=== PATIENT | female | born 1975 | race Caucasian/White ===

== ENCOUNTER 2018-08-30 12:09 | Emergency (ER) | payer OTHER ==
[2018-08-30 12:22] VITALS: RESP 18
[2018-08-30] MEDS ORDERED: Oxymetazoline 0.05% Nasal Spray (30 ml) NS STA (13:24)
--- NOTE | 2018-08-30 13:25 | C.PDOC ---
History Of Present Illness 43 y/o female pt with hx of anemia presents to the ER c/o nose bleed in the right nare for x3 weeks. Pt notes she is on blood thinners. Pt denies trauma, URI sx, headache, visual changes, nausea, vomiting, fever and chills. Time Seen by Provider: 08/30/18 12:16 Chief Complaint (Nursing): ENT Problem History Per: Patient History/Exam Limitations: no limitations Onset/Duration Of Symptoms: Days (x3 weeks) Current Symptoms Are (Timing): Still Present Location Of Bleeding: Right Nare Symptoms Have Been: Continuous Past Medical History Reviewed: Historical Data, Nursing Documentation, Vital Signs Vital Signs: Last Vital Signs Temp 98.7 F 08/30/18 12:15 Pulse 98 H 08/30/18 12:15 Resp 18 08/30/18 12:15 BP 152/103 H 08/30/18 12:15 Pulse Ox 99 08/30/18 12:15 - Medical History PMH: Anemia, Hypothyroidism Family History: States: Unknown Family Hx - Social History Hx Alcohol Use: No Hx Substance Use: No Review Of Systems Except As Marked, All Systems Reviewed And Found Negative. Constitutional: Negative for: Fever, Chills, Other (trauma ) Eyes: Negative for: Vision Change ENT: Positive for: Other (nose bleed in right nare ) Respiratory: Negative for: Cough, Shortness of Breath, Wheezing Gastrointestinal: Negative for: Vomiting Neurological: Negative for: Headache Physical Exam - Physical Exam Appears: Well, Non-toxic, No Acute Distress Skin: Warm, Dry Head: Atraumatic, Normacephalic Eye(s): bilateral: PERRL, EOMI, Other (conjunctiva clear ) Ear(s): Bilateral: Normal Nose: No Discharge, Epistaxis (oozing on nasal floor of right nare ), No Deformity, No Tenderness Oral Mucosa: Moist Tongue: Normal Appearing Lips: Normal Appearing Throat: Normal, No Erythema, No Exudate, No Drooling ED Course And Treatment O2 Sat by Pulse Oximetry: 99 (RA) Pulse Ox Interpretation: Normal Medical Decision Making Medical Decision Making: plans: -- Pt was told to blow clots out and was told to hold nose pressure for 15 minutes. -- 7.5 rapid rhino was placed in right nare Reassess: no further bleeding. Pt is d/c with prescription for keflex. Pt instructed to f/u in 2 days to remove rapid rhino. Disposition Counseled Patient/Family Regarding: Diagnosis, Need For Followup - Disposition Disposition: HOME/ ROUTINE Disposition Time: 13:50 Condition: IMPROVED Additional Instructions: ALFRED SPEARS, thank you for letting us take care of you today. Your provider was Nicole Crenshaw MD and you were treated for FREQUENT NOSEBLEEDS. The emergency medical care you received today was directed at your acute symptoms. If you were prescribed any medication, please fill it and take as directed. It may take several days for your symptoms to resolve. Return to the Emergency Department if your symptoms worsen, do not improve, or if you have any other problems. Please follow up with your doctor in 2 days or return to the Emergency Department for reevaluation/removal of nasal packing. Bring any paperwork you were given at discharge with you along with any medications you are taking to your follow up visit. Our treatment cannot replace ongoing medical care by a primary care provider outside of the emergency department. Thank you for allowing the [facility] team to be part of your care today. Prescriptions: Cephalexin [cephalexin] 500 mg PO QID #28 cap Instructions: Nosebleeds (DC) Forms: [employer] (Montenegrin) - POA Present On Arrival: None - Clinical Impression Clinical Impression: Epistaxis - Scribe Statement The provider has reviewed the documentation as recorded by the Scribdivya Hudson Do Provider Attestation: All medical record entries made by the Scribe were at my direction and personally dictated by me. I have reviewed the chart and agree that the record accurately reflects my personal performance of the history, physical exam, medical decision making, and the department course for this patient. I have also personally directed, reviewed, and agree with the discharge instructions and disposition.
[2018-08-30] MEDS ORDERED: Oxymetazoline 0.05% Nasal Spray (30 ml) NS ONE (13:46)
[2018-08-30 13:48] VITALS: BP 148/86; PULSE 84; TEMP 98.6
[2018-08-30 14:26] VITALS: O2SAT 99
== END 2018-08-30 13:50 | disposition home or self-care (01) ==
LOC: C.ER 12:09
DX: R04.0 Epistaxis (principal); Z79.01 Long term (current) use of anticoagulants

== ENCOUNTER 2018-09-01 06:06 | Emergency (ER) | payer SELFPAY ==
[2018-09-01 06:24] VITALS: RESP 20
--- NOTE | 2018-09-01 06:36 | C.PDOC ---
History Of Present Illness patient returns today for nasal packing removal. she was seen in this ED 2 days ago and had a 7.5 cm rhino rocket placed. she denies any bleeding around the packing or down her throat. Time Seen by Provider: 09/01/18 06:33 Chief Complaint (Nursing): ENT Problem Past Medical History Vital Signs: Last Vital Signs Temp 98.5 F 09/01/18 06:13 Pulse 105 H 09/01/18 06:13 Resp 20 09/01/18 06:13 BP 142/93 H 09/01/18 06:13 Pulse Ox 96 09/01/18 06:13 - Medical History PMH: Anemia, Hypothyroidism Family History: States: Unknown Family Hx - Social History Hx Alcohol Use: No Hx Substance Use: No Review Of Systems Constitutional: Positive for: Fever. Negative for: Chills ENT: Positive for: Nose Pain (due to packing) Respiratory: Negative for: Hemoptysis Physical Exam - Physical Exam Appears: Well, No Acute Distress Skin: Normal Color Nose: Other (nasal packing in place, packing removed, blood noted in nare, no active bleeding ) Oral Mucosa: Moist Throat: Normal, Other (no blood oozing down pharynx) Neck: Normal, Trachea Midline Respiratory: No Accessory Muscle Use, No Stridor, No Wheezing ED Course And Treatment O2 Sat by Pulse Oximetry: 96 Progress Note: this patient has no active bleeding 15 minutes after packing removal. Medical Decision Making Medical Decision Making: this patient does not have active nose bleeding at this time. she has been advised to not blow her nose for the rest of the day and to return to the ER if bleeding returns and she is unable to stop it after 30 minutes. Disposition Counseled Patient/Family Regarding: Diagnosis, Need For Followup - Disposition Referrals: Buddy Gresham MD [Staff Provider] - Disposition: HOME/ ROUTINE Disposition Time: 06:53 Condition: IMPROVED Instructions: Nosebleeds (DC) Forms: [employer] (Syriac) - Clinical Impression Clinical Impression: Epistaxis
[2018-09-01 07:10] VITALS: BP 129/74; PULSE 74; TEMP 98.2; O2SAT 99
== END 2018-09-01 07:09 | disposition home or self-care (01) ==
LOC: C.ER 06:06
DX: R04.0 Epistaxis (principal)